=== PATIENT | female | born 1935 | race Caucasian/White ===

== ENCOUNTER → 2016-08-29 14:02 | Outpatient (CLI) | payer MEDICARE, OTHER | END | disposition home or self-care (01) | LOC: D.CT 14:02 | DX: M25.552 Pain in left hip (principal) ==

== ENCOUNTER → 2016-09-26 13:56 | Outpatient (CLI) | payer MEDICARE, OTHER | END | disposition home or self-care (01) | LOC: D.MAMMO 08:15 | DX: Z12.31 Encounter for screening mammogram for malignant neoplasm of breast (principal) ==

== ENCOUNTER 2018-06-18 17:51 | Outpatient (CLI) | payer MEDICARE, OTHER | END 2018-06-18 23:59 | disposition home or self-care (01) | LOC: D.MAMMO 17:51 | DX: Z12.31 Encounter for screening mammogram for malignant neoplasm of breast (principal) ==